=== PATIENT | male | born 1955 | race Caucasian/White ===

== ENCOUNTER → 2016-05-16 | Outpatient (CLI) | payer BC, OTHER ==
[2016-05-16 09:31] LABS: ALT/SGPT 7 U/L (12-78); AST/SGOT 19 U/L (15-37); BLOOD UREA NITROGEN 15 mg/dl (7-18); BUN/CREATININE RATIO 12.4 (10-20); CALCIUM 9.2 mg/dl (8.5-10.1); CARBON DIOXIDE 27 mmol/L (21-32); CHLORIDE 107 mmol/L (98-107); GLUCOSE 111 mg/dl (70-99); MAGNESIUM 2.3 mg/dl (1.8-2.4); POTASSIUM 4.2 mmol/L (3.5-5.1); SODIUM 141 mmol/L (136-145)
[2016-05-16 09:32] LABS: ALKALINE PHOSPHATASE 134 U/L (45-117)
[2016-05-16 09:42] LABS: ESTIMATED AVERAGE GLUCOSE 131 mg/dl; HA1C FLAG Normal (Normal)
== END | disposition home or self-care (01) ==
LOC: C.LAB 08:40
PROVIDERS: ATTEND Family Medicine
DX: R73.02 Impaired glucose tolerance (oral) (principal); E55.9 Vitamin D deficiency, unspecified; K21.9 Gastro-esophageal reflux disease without esophagitis; I10 Essential (primary) hypertension; Z13.89 Encounter for screening for other disorder

== ENCOUNTER → 2016-09-29 | Outpatient (CLI) | payer BC, OTHER ==
[2016-09-29 10:00] LABS: HEMATOCRIT 45.1 % (42-52); MEAN CELL VOLUME 84.6 fL (80-100); MEAN CORPUSCULAR HEMOGLOBIN 27.2 pg (25-34); MEAN CORPUSCULAR HGB CONC 32.2 g/dl (32-36); MEAN PLATELET VOLUME 9.7 fL (7.4-10.4); PLATELET COUNT 206 K/uL (130-400); RED BLOOD COUNT 5.33 M/uL (4.7-6.1); WHITE BLOOD COUNT 4.19 K/uL (4.8-10.8)
[2016-09-29 10:03] LABS: URINE APPEARANCE CLEAR (CLEAR); URINE BILIRUBIN NEG (NEG); URINE COLOR DK YELLOW; URINE NITRITE NEG (NEG); URINE PH 5.5 (4.5-7.5); UROBILINOGEN NEG (NEG)
[2016-09-29 10:11] LABS: MANUAL MICROSCOPIC REQUIRED? NO; REVIEW REQ? NO
[2016-09-29 10:30] LABS: ALT/SGPT 10 U/L (12-78); BLOOD UREA NITROGEN 13 mg/dl (7-18); BUN/CREATININE RATIO 11.6 (10-20); CALCIUM 9.4 mg/dl (8.5-10.1); CARBON DIOXIDE 29 mmol/L (21-32); CHLORIDE 107 mmol/L (98-107); CHOLESTEROL 149 mg/dl (0-200); GLUCOSE 105 mg/dl (70-99); POTASSIUM 4.6 mmol/L (3.5-5.1); SODIUM 139 mmol/L (136-145)
[2016-09-29 10:34] LABS: ALKALINE PHOSPHATASE 102 U/L (45-117); AST/SGOT 23 U/L (15-37); CHOLESTEROL/HDL RATIO 2.8; HDL CHOLESTEROL 54 mg/dl; TRIGLYCERIDES 64 mg/dl (0-150); VERY LOW DENSITY LIPOPROT CALC 13 mg/dl
[2016-09-29 11:16] LABS: ESTIMATED AVERAGE GLUCOSE 128 mg/dl; HA1C FLAG Normal (Normal)
== END | disposition home or self-care (01) ==
LOC: C.LAB 09:26
PROVIDERS: ATTEND Family Medicine
DX: E78.5 Hyperlipidemia, unspecified (principal); I10 Essential (primary) hypertension; E55.9 Vitamin D deficiency, unspecified; R73.02 Impaired glucose tolerance (oral)

== ENCOUNTER 2019-02-16 19:46 | Inpatient (IN) ==
[2019-02-16] MEDS ORDERED: MoRPHine SULFATE 10 MG/ML CARP/VIAL IV STA (20:13)
[2019-02-16] MEDS ORDERED: ONDANSETRON INJ 2 MG/ML 2 ML VIAL IV STA (20:13)
[2019-02-16 20:37] LABS: Basophils # (auto) 0.02 K/uL (0-0.2); Basophils % (auto) 0.2 %; Eosinophils # (auto) 0.04 K/uL (0-0.5); Eosinophils % (auto) 0.4 %; Immature Granulocytes # (auto) 0.02 K/uL (0.00-0.02); Immature Granulocytes % (auto) 0.2 %; Lymphocytes # (auto) 0.88 K/uL (1.2-3.4); Lymphocytes % (auto) 8.8 %; Mean Corpuscular Hemoglobin 28.7 pg (25-34); Mean Corpuscular Volume 84.4 fL (80-100); Mean Platelet Volume 9.7 fL (7.4-10.4); Monocytes # (auto) 0.84 K/uL (0.11-0.59); Monocytes % (auto) 8.4 %; Platelet Count 191 K/uL (130-400); RDW Coefficient of Variation 13.7 % (11.5-14.5); RDW Standard Deviation 42.3 fL (36.4-46.3); Red Blood Count 5.57 M/uL (4.7-6.1)
[2019-02-16 20:47] LABS: INR 1.1 (0.9-1.1); Prothrombin Time 10.9 Seconds (9.0-12.0)
[2019-02-16 20:48] LABS: iSTAT Creatinine 1.3 mg/dl (0.6-1.3); iSTAT Ionized Calcium 1.14 mmol/l (1.12-1.32)
[2019-02-16] MEDS ORDERED: IOVERSOL 100ml IV PRN (20:50)
[2019-02-16 20:54] LABS: Albumin Level 3.9 gm/dl (3.4-5.0); BUN Creatinine Ratio 14.8 (10-20); Calcium 9.9 mg/dl (8.5-10.1); Creatinine Clr Calc Pharmacy 65.1 ml/min; Est GFR (African American) 55.8; Est GFR (Non-African American) 48.1
[2019-02-16 20:57] LABS: Albumin Globulin Ratio 0.9 (0.9-2); Bilirubin,Total 0.8 mg/dl (0.2-1); Globulin 4.3 gm/dl (2.5-4.0); Total Protein 8.2 gm/dl (6.4-8.2)
--- NOTE | 2019-02-16 21:12 | CT Scan Report ---
CT chest w con CT DOSE: 2099.64 mGy.cm HISTORY: r rib pain TECHNIQUE: Multiaxial CT images of the chest were performed following the intravenous administration of contrast. A dose lowering technique was utilized adhering to the principles of ALARA. COMPARISON: None. FINDINGS: Fractures right third through eighth ribs. No evidence of pneumothorax. Bibasilar atelectas is. The remaining ribs are intact. Several small hepatic cysts. Small gallstone. Bibasilar atelectasi s. Nondisplaced cortical fracture superior sternum IMPRESSION: 1. Fractures right third through eighth ribs. 2. No evidence of pneumothorax. 3. Bibasilar atelectasis. 4. Nondisplaced fracture superior sternum ACT 112: Negative or not required by law. The above report was generated using voice recognition software. It may contain grammatical, syntax or spelling errors. Electronically signed by: Dangelo Villar M.D. 02/16/2019 9:10 PM
--- NOTE | 2019-02-16 21:15 | CT Scan Report ---
CT abd pelvis IV con only CT DOSE: HISTORY: Trauma. Pain. FINDINGS: Mild basilar atelectasis. Trace pleural fluid right base. Small lower right paravertebral l ymph node. Several hepatic cysts. Several gallstones. Kidneys are negative for hydronephrosis. Several small renal cortical cysts are present. The abdomen and pelvis in bowel pattern is nonobstructive. Bladder is midline. No free fluid within t he pelvic cul-de-sac. Postoperative changes to the mid to lower lumbar spine as well as lumbosacral j unction TECHNIQUE: Multiaxial CT images of the abdomen and pelvis were performed following the use of intrave nous contrast. A dose lowering technique was utilized adhering to the principles of ALARA. COMPARISON STUDY: None. IMPRESSION: No acute posttraumatic abnormality of the abdomen or pelvis. ACT 112: Negative or not required by law. The above report was generated using voice recognition software. It may contain grammatical, syntax or spelling errors. Electronically signed by: Dangelo Villar M.D. 02/16/2019 9:14 PM
--- NOTE | 2019-02-16 22:26 | History & Physical Report ---
Date of Service February 16, 2019 Assessment & Plan (1) Ribs, multiple fractures: (2) Fracture of sternum: -Admit to [facility] -Patient presenting from home after experiencing a mechanical fall off of his porch -CT chest showing fractures right third through eighth ribs and nondisplaced fracture superior sternum; no signs of pneumothorax -Pain control with scheduled Tylenol every 6 hours; oxycodone for moderate pain and IV morphine for severe pain -Incentive spirometer -PT/OT evals (3) Abnormal kidney function: -Creatinine 1.5; most recent available labs from 2017 show creatinine 1.1 -IVF, follow-up renal functions in a.m. (4) CAD (coronary artery disease): -Appears stable, no reports of chest pain -EKG shows sinus tachycardia (likely secondary to pain), no acute ST changes -Continue aspirin, statin, EVERTON inhibitor (5) Parkinson disease: -Continue carbidopa levodopa, amantadine (6) GERD (gastroesophageal reflux disease): -Continue H2 pillo and PPI (7) DVT prophylaxis: -SCDs, ambulate History of Present Illness Chief Complaint: Rib pain Primary Care Provider: Mayra Ybarra 63-year-old male who presents the ED for evaluation of rib pain after suffering a fall at home today. Patient reports he was on his porch filling up a dog food container when he started shuffling from his Parkinson's and fell off the porch and down 4 stairs. Patient landed on his right side and subsequently had severe right-sided rib pain. Patient denies striking his head or having loss of consciousness. Denies any preceding chest pain, shortness of breath, lightheadedness, dizziness. Reports he otherwise been feeling well recently. No other recent illnesses, fevers, chills. Denies abdominal pain, nausea, vomiting, diarrhea. No urinary symptoms. In the ED, chest CT shows fractures right third through eighth ribs and nondisplaced fracture superior sternum. Patient is hemodynamically stable. He was given IV morphine and IV Zofran. He continues to have persistent pain and will be admitted for observation and management of pain. Allergies Allergy/AdvReac Type Severity Reaction Status Date / Time No Known Allergies Allergy Verified 02/16/19 20:51 Home Medications Home Medications Medication Instructions Recorded Confirmed Type atorvastatin 40 mg tablet 40 mg PO QAM 01/31/19 02/16/19 History carbidopa 25 mg-levodopa 100 mg See Rx Instructions .ROUTE .COMPLEX 01/31/19 02/16/19 History tablet duloxetine 30 mg capsule,delayed 30 mg PO DAILY 01/31/19 02/16/19 History release famotidine 20 mg tablet 20 mg PO DAILY 01/31/19 02/16/19 History lisinopril 5 mg tablet 5 mg PO DAILY 01/31/19 02/16/19 History pantoprazole 40 mg tablet,delayed 40 mg PO DAILY 01/31/19 02/16/19 History release carbidopa 25 mg-levodopa 100 1 tab PO QID #360 tab 02/03/19 02/16/19 Rx mg-entacapone 200 mg tablet amantadine HCl 100 mg capsule 100 mg PO TID 14 Days #42 cap 02/13/19 02/16/19 Rx aspirin 81 mg PO DAILY 02/16/19 02/16/19 History Past Med/Surg History Medical History CAD (coronary artery disease) S/P stent ~ 2009 GERD (gastroesophageal reflux disease) Hyperlipidemia Hypertension Neuropathy ANTWAN (obstructive sleep apnea) Parkinson disease Surgical History H/O brain surgery For clinical trial for Parkinson's History of back surgery S/P rotator cuff repair Family History Mother Kidney disease Father Alzheimer disease Social History Preferred Language: Chinese Communication Ability: Effective 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 Beliefs That Will Affect Care: None Current Living Situation: Spouse Feels Safe at Home: Yes Safety Concerns: Feels Safe At This Time Smoking Status: Never smoker Hx Alcohol Use: No Hx Substance Use: No Review of Systems Review of Systems: ROS per HPI, all other systems reviewed and negative Physical Exam Constitutional: WD/WN, vitals as above Eyes: PERRL, conjunctivae normal, anicteric sclerae ENMT: external ear and nose normal, oropharynx normal Respiratory: normal respiratory effort; no respiratory distress Auscultation: + diminished lung sounds (Bilateral bases) Cardiovascular: Rate/Rhythm: regular rate and regular rhythm Vessels: normal peripheral pulses Extremities: no edema Gastrointestinal (Abdomen): normal bowel sounds, soft, nontender, no hepatosplenomegaly Musculoskeletal: no cyanosis or clubbing, extremities motor strength 5/5 Head/Neck/Chest: + localized rib tenderness (right) Mild -moderate dyskinesias noted Skin: no rashes, warm and dry Neurologic: PERRL, EOMI, accommodation nl, no face palsy, no dysarthria Psychiatric: A+Ox3, euthymic affect Results & Data Vital Signs (Past 12 Hours) Vital Signs Temp Pulse Pulse Resp BP BP Pulse Ox 02/16/19 22:00 101 H 24 104/79 94 02/16/19 21:30 98 H 21 125/80 94 02/16/19 20:36 116 H 24 151/93 H 95 02/16/19 20:35 113 H 20 151/93 H 95 02/16/19 19:54 36.3 C L 130 H 22 170/111 H 98 Laboratory Results Short CBC 02/16/19 Range/Units 20:30 WBC 10.00 (4.8-10.8) K/uL Hgb 16.0 (14.0-18.0) g/dL Hct 47.0 (42-52) % Plt Count 191 (130-400) K/uL BMP 02/16/19 20:30 Sodium 139 Potassium 4.0 Chloride 107 Carbon Dioxide 24 BUN 22 H Creatinine 1.51 H Glucose 113 H Calcium 9.9 Liver Function 02/16/19 Range/Units 20:30 Total Bilirubin 0.8 (0.2-1) mg/dl AST 27 (15-37) U/L ALT 11 L (12-78) U/L Alkaline Phosphatase 94 (45-117) U/L Albumin 3.9 (3.4-5.0) gm/dl Diagnostic Findings CHEST CT IMPRESSION: 1. Fractures right third through eighth ribs. 2. No evidence of pneumothorax. 3. Bibasilar atelectasis. 4. Nondisplaced fracture superior sternum CT ABD/PELVIS IMPRESSION: No acute posttraumatic abnormality of the abdomen or pelvis. Code Status & VTE Plan VTE Prophylaxis Plan VTE Prophylaxis will be ordered: Yes Supervising Physician Co-Signing Physician Notes Pt was seen and examined. Agreed with Luh EVANS exam, assessment and plan. 63 y/o M with PMH of Parkinson's disease, HTN, CAD and GERD present to to the ER after a fall. CT chest showed Fractures right third through eighth ribs and nondisplaced fracture superior sternum. Continue pain control. Incentive michael metry. Fall precaution. PT/OT eval. Will consult case management for possible placement. Continue monitor closely. MD Adarsh
--- NOTE | 2019-02-17 00:03 | Emergency Department Note ---
Entered by Galnia Lopez acting as a scribe for History of Present Illness General Chief complaint: Rib Injury/Pain Stated complaint: 4 BROKEN RIBS Time Seen by Provider: 02/16/19 20:06 Source: patient Limitations: no limitations History of Present Illness Onset (ago): hour(s) (a few) Location: right (rib) Severity: severe Pain Consistency: + constant Maximum Pain Intensity: 10 Quality: + other (pain) Exacerbated By: + movement Associated symptoms: + denies other symptoms (head pain, neck pain, and abdominal pain ) and + other (back pain) The patient is a 63 year old male who presents to the Emergency Room with complaints of severe, constant right-sided rib pain that began after a fall a few hours ago. The patient reports that he was shuffling on the porch to feed the dog, and he fell sideways of the porch. He states that he was seen at [facility] for the pain, and he was referred here. The patient reports that imagining at [facility] showed 4 broken ribs. He notes that movement exacerbates the pain. He complains of back pain. The patient denies hitting his head. He denies any neck pain, head pain, and abdominal pain. Patient denies hitting his head. Denies any blood thinners. Home Medications Home Medications Medication Instructions Recorded Confirmed Type atorvastatin 40 mg tablet 40 mg PO QAM 01/31/19 02/16/19 History carbidopa 25 mg-levodopa 100 mg See Rx Instructions .ROUTE .COMPLEX 01/31/19 02/16/19 History tablet duloxetine 30 mg capsule,delayed 30 mg PO DAILY 01/31/19 02/16/19 History release famotidine 20 mg tablet 20 mg PO DAILY 01/31/19 02/16/19 History lisinopril 5 mg tablet 5 mg PO DAILY 01/31/19 02/16/19 History pantoprazole 40 mg tablet,delayed 40 mg PO DAILY 01/31/19 02/16/19 History release carbidopa 25 mg-levodopa 100 1 tab PO QID #360 tab 02/03/19 02/16/19 Rx mg-entacapone 200 mg tablet amantadine HCl 100 mg capsule 100 mg PO TID 14 Days #42 cap 02/13/19 02/16/19 Rx aspirin 81 mg PO DAILY 02/16/19 02/16/19 History Allergies Allergy/AdvReac Type Severity Reaction Status Date / Time No Known Allergies Allergy Verified 02/16/19 20:51 Past Med/Surg History Medical History CAD (coronary artery disease) S/P stent ~ 2009 GERD (gastroesophageal reflux disease) Hyperlipidemia Hypertension Neuropathy ANTWAN (obstructive sleep apnea) Parkinson disease Surgical History H/O brain surgery For clinical trial for Parkinson's History of back surgery S/P rotator cuff repair Family History Mother Kidney disease Father Alzheimer disease Social History Preferred Language: Citizen Of [place] Communication Ability: Effective 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 and A total of 10 systems reviewed and were otherwise negative Physical Exam Vital Signs Vital Signs - 24 hr 02/16/19 19:54 02/16/19 20:33 02/16/19 20:35 Temperature 36.3 C L Temperature Source Oral Pulse Rate 130 H 113 H Pulse Rate [Apical] Respiratory Rate 22 20 Respiratory Effort / Characteristics Non-Labored Spontaneous Respiratory Depth Normal Blood Pressure 170/111 H 151/93 H Blood Pressure [Left Arm] Blood Pressure Mean 130 107 Blood Pressure Mean [Left Arm] Pulse Oximetry 98 95 Oxygen Delivery Method Room Air Room Air Room Air Sepsis Recent Fever Within 48 Hours No Sepsis New/Unexplained Change in Mental Status No Sepsis Action Taken by Nursing No Action Required 02/16/19 20:36 02/16/19 21:30 02/16/19 22:00 Temperature Temperature Source Pulse Rate 98 H 101 H Pulse Rate [Apical] 116 H Respiratory Rate 24 21 24 Respiratory Effort / Characteristics Respiratory Depth Blood Pressure 125/80 104/79 Blood Pressure [Left Arm] 151/93 H Blood Pressure Mean 92 82 Blood Pressure Mean [Left Arm] 112 Pulse Oximetry 95 94 94 Oxygen Delivery Method Room Air Room Air Room Air Sepsis Recent Fever Within 48 Hours Sepsis New/Unexplained Change in Mental Status Sepsis Action Taken by Nursing GENERAL: sitting up in bed, moderate distress, holding right chest wall HEAD: normal cephalic, atraumatic EYE EXAM: normal conjunctiva OROPHARYNX: no exudate, no erythema, lips, buccal mucosa, and tongue normal and mucous membranes are moist EARS: TMs clear b/l NECK: supple, no nuchal rigidity, no adenopathy, non-tender CHEST: stable to compression anteriorly and posteriorly LUNGS: clear to auscultation. Normal chest wall mechanics. Taking short, shallow breaths. HEART: no murmurs, S1 normal and S2 normal, tachycardic CHEST: tenderness along the right posterior/axillary rib 4-8. ABDOMEN: abdomen soft, non-tender, normo-active bowel sounds, no masses, no rebound or guarding. PELVIS: stable to compression anteriorly and posteriorly BACK: Back is symmetrical on inspection and there is no deformity, no midline tenderness, no CVA tenderness. UPPER EXTREMITIES: full active and passive range of motion of all joints without tenderness to palpation LOWER EXTREMITIES: full active and passive range of motion of all joints without tenderness to palpation NEURO EXAM: Normal sensorium, cranial nerves II-XII grossly intact, normal speech, no gross weakness of arms, no gross weakness of legs. GCS: 15. Course Course ED COURSE: Vital signs were reviewed and showed hypertension The patients medical record was reviewed The above diagnostic studies were performed and reviewed. ED treatments and interventions as stated above. 2008: The patient was evaluated in room B10. A complete history and physical examination was performed. 2140: I spoke with Dr. Ho, [facility] hospitalist, about the patients case. He will further evaluate the patient. 2142: Upon reevaluation, the patient is stable. I discussed my findings with the patient and he understands and agrees with the treatment plan. The patient stated that he did not want any more pain medications. Based on the patients age, coexisting illnesses, exam and lab findings the decision to treat as an inpatient was made. The patient remained stable while under my care. The patient will be evaluated for further management. Administered Medications Discontinued Medications Ioversol (Optiray 320 100ml) 92 ml IV ONCE PRN PRN Reason: Interaction Checking Stop: 02/20/19 20:49 Last Admin: 02/16/19 20:50 Dose: 92 ml Documented by: [id number] Morphine Sulfate (Morphine Sulfate) 6 mg IV NOW STA Stop: 02/16/19 20:14 Last Admin: 02/16/19 20:28 Dose: 6 mg Documented by: [id number] Ondansetron HCl (Zofran) 4 mg IV NOW STA Stop: 02/16/19 20:14 Last Admin: 02/16/19 20:28 Dose: 4 mg Documented by: [id number] Medical Decision Making Differential Diagnosis Differential diagnoses include major intracranial, cervical, spinal, thoracic, abdominal, pelvic and neurologic injury. Fracture, contusion, sprain, strain, l aceration, abrasions included as well. Medical Records Attestation: I reviewed the patient's medical records. Home Medications Current Medication List: was personally reviewed by me Laboratory Data Attestation: I reviewed the patient's lab results. Result diagrams: 02/16/19 20:30 02/16/19 20:30 Lab Results 02/16/19 02/16/19 02/16/19 Range/Units 20:30 20:30 20:30 WBC 10.00 (4.8-10.8) K/uL RBC 5.57 (4.7-6.1) M/uL Hgb 16.0 (14.0-18.0) g/dL POC Hgb (14.0-18.0) g/dl Hct 47.0 (42-52) % POC Hct (42-52) % MCV 84.4 (80-100) fL MCH 28.7 (25-34) pg MCHC 34.0 (32-36) g/dL RDW Std Deviation 42.3 (36.4-46.3) fL RDW Coeff of Angeli 13.7 (11.5-14.5) % Plt Count 191 (130-400) K/uL MPV 9.7 (7.4-10.4) fL Immature Gran % (Auto) 0.2 % Neut % (Auto) 82.0 % Lymph % (Auto) 8.8 % Falls % (Auto) 8.4 % Eos % (Auto) 0.4 % Baso % (Auto) 0.2 % Immature Gran # (Auto) 0.02 (0.00-0.02) K/uL Neut # (Auto) 8.20 H (1.4-6.5) K/uL Lymph # (Auto) 0.88 L (1.2-3.4) K/uL Falls # (Auto) 0.84 H (0.11-0.59) K/uL Eos # (Auto) 0.04 (0-0.5) K/uL Baso # (Auto) 0.02 (0-0.2) K/uL PT 10.9 (9.0-12.0) Seconds INR 1.1 (0.9-1.1) POC Sodium (135-144) mEq/L Sodium 139 (136-145) mmol/L POC Potassium (3.3-5.0) mEq/L Potassium 4.0 (3.5-5.1) mmol/L POC Chloride (101-112) mEq/L Chloride 107 (98-107) mmol/L Carbon Dioxide 24 (21-32) mmol/L POC Total CO2 (24-31) mEq/l Anion Gap 7.0 (3-11) POC Anion Gap (16-25) mmol/L POC BUN (7-18) mg/dl BUN 22 H (7-18) mg/dl Creatinine 1.51 H (0.6-1.4) mg/dl POC Creatinine (0.6-1.3) mg/dl Est Cr Clr Drug Dosing 65.1 ml/min Est GFR ( Amer) 55.8 Est GFR (Non-Af Amer) 48.1 BUN/Creatinine Ratio 14.8 (10-20) Glucose 113 H (70-99) mg/dl POC Glucose (other) (70-99) mg/dl Calcium 9.9 (8.5-10.1) mg/dl POC Ioniz Calcium Gricelda (1.12-1.32) mmol/l Total Bilirubin 0.8 (0.2-1) mg/dl AST 27 (15-37) U/L ALT 11 L (12-78) U/L Alkaline Phosphatase 94 (45-117) U/L Total Protein 8.2 (6.4-8.2) gm/dl Albumin 3.9 (3.4-5.0) gm/dl Globulin 4.3 H (2.5-4.0) gm/dl Albumin/Globulin Ratio 0.9 (0.9-2) /20 Range/Units 20:33 WBC (4.8-10.8) K/uL RBC (4.7-6.1) M/uL Hgb (14.0-18.0) g/dL POC Hgb 17.0 (14.0-18.0) g/dl Hct (42-52) % POC Hct 50 (42-52) % MCV (80-100) fL MCH (25-34) pg MCHC (32-36) g/dL RDW Std Deviation (36.4-46.3) fL RDW Coeff of Angeli (11.5-14.5) % Plt Count (130-400) K/uL MPV (7.4-10.4) fL Immature Gran % (Auto) % Neut % (Auto) % Lymph % (Auto) % Falls % (Auto) % Eos % (Auto) % Baso % (Auto) % Immature Gran # (Auto) (0.00-0.02) K/uL Neut # (Auto) (1.4-6.5) K/uL Lymph # (Auto) (1.2-3.4) K/uL Falls # (Auto) (0.11-0.59) K/uL Eos # (Auto) (0-0.5) K/uL Baso # (Auto) (0-0.2) K/uL PT (9.0-12.0) Seconds INR (0.9-1.1) POC Sodium 140 (135-144) mEq/L Sodium (136-145) mmol/L POC Potassium 4.0 (3.3-5.0) mEq/L Potassium (3.5-5.1) mmol/L POC Chloride 106 (101-112) mEq/L Chloride (98-107) mmol/L Carbon Dioxide (21-32) mmol/L POC Total CO2 24 (24-31) mEq/l Anion Gap (3-11) POC Anion Gap 16.0 (16-25) mmol/L POC BUN 24 H (7-18) mg/dl BUN (7-18) mg/dl Creatinine (0.6-1.4) mg/dl POC Creatinine 1.3 (0.6-1.3) mg/dl Est Cr Clr Drug Dosing ml/min Est GFR ( Amer) Est GFR (Non-Af Amer) BUN/Creatinine Ratio (10-20) Glucose (70-99) mg/dl POC Glucose (other) 111 H (70-99) mg/dl Calcium (8.5-10.1) mg/dl POC Ioniz Calcium Gricelda 1.14 (1.12-1.32) mmol/l Total Bilirubin (0.2-1) mg/dl AST (15-37) U/L ALT (12-78) U/L Alkaline Phosphatase (45-117) U/L Total Protein (6.4-8.2) gm/dl Albumin (3.4-5.0) gm/dl Globulin (2.5-4.0) gm/dl Albumin/Globulin Ratio (0.9-2) Imaging Data Radiologist's Impression: Radiology results as stated below per my review and the radiologist's interpretation: CT abd pelvis IV con only CT DOSE: HISTORY: Trauma. Pain. FINDINGS: Mild basilar atelectasis. Trace pleural fluid right base. Small lower right paravertebral lymph node. Several hepatic cysts. Several gallstones. Kidneys are negative for hydronephrosis. Several small renal cortical cysts are present. The abdomen and pelvis in bowel pattern is nonobstructive. Bladder is midline. No free fluid within the pelvic cul-de-sac. Postoperative changes to the mid to lower lumbar spine as well as lumbosacral junction TECHNIQUE: Multiaxial CT images of the abdomen and pelvis were performed following the use of intravenous contrast. A dose lowering technique was utilized adhering to the principles of ALARA. COMPARISON STUDY: None. IMPRESSION: No acute posttraumatic abnormality of the abdomen or pelvis. ACT 112: Negative or not required by law. The above report was generated using voice recognition software. It may contain grammatical, syntax or spelling errors. Electronically signed by: Dangelo Villar M.D. 02/16/2019 9:[address] chest w con CT DOSE: 2099.64 mGy.cm HISTORY: r rib pain TECHNIQUE: Multiaxial CT images of the chest were performed following the intravenous administration of contrast. A dose lowering technique was utilized adhering to the principles of ALARA. COMPARISON: None. FINDINGS: Fractures right third through eighth ribs. No evidence of pneumothorax. Bibasilar atelectasis. The remaining ribs are intact. Several small hepatic cysts. Small gallstone. Bibasilar atelectasis. Nondisplaced cortical fracture superior sternum IMPRESSION: 1. Fractures right third through eighth ribs. 2. No evidence of pneumothorax. 3. Bibasilar atelectasis. 4. Nondisplaced fracture superior sternum ACT 112: Negative or not required by law. The above report was generated using voice recognition software. It may contain grammatical, syntax or spelling errors. Electronically signed by: Dangelo Villar M.D. 02/16/2019 9:10 PM ECG Data Attestation: I personally reviewed and interpreted this ECG as follows: Indication: + chest pain Rate (beats per minute): 106 Rhythm: + sinus tachycardia ECG [place]: + Left axis deviation ECG Findings: + Other (normal QTC); no PVCs Blood Pressure Blood Pressure Findings: Elevated blood pressure Blood Pressure Disposition: further management by hospitalist VIKAS Narrative Patient is a 63-year-old male with Parkinson's that presents the ER following a fall onto his right rib cage down 4 steps. He denies hitting his head or any neck pain. No loss consciousness. IV was established blood work was obtained and showed no significant leukocytosis or anemia. INR was normal. BMP with a slightly elevated BUN. LFTs bilirubin was unremarkable. CT of the chest and abdomen pelvis shows rib fractures 3 through 8. No hemo-or pneumothorax. Patient was given IV fluids IV morphine and IV Zofran. Discussed with the hospitalist for observation and they were willing to admit. Patient and family were updated at bedside. If they declined patient was going to go to [facility] per their request. Impression & Plan Multiple fractures of ribs, Parkinson disease, Hypertension, Chest pain Discharge Plan Visit Data *Final* Discharge Date/Time: 02/16/19 23:00 Chief Complaint: Rib Injury/Pain Stated Complaint: 4 BROKEN RIBS ED Provider: Johnathon Nash Discharge Problem: Multiple fractures of ribs, Parkinson disease, Hypertension, Chest pain Patient Disposition: Admitted As Inpatient Discharge Instructions Interventions: ED Discharge Assessment Last Done: 02/16/19 23:00 Discharge Problem: Multiple fractures of ribs Qualifiers: Encounter type: initial encounter Fracture type: closed Laterality: right Qualified Code(s): S22.41XA - Multiple fractures of ribs, right side, initial encounter for closed fracture Hypertension Qualifiers: Hypertension type: unspecified Qualified Code(s): I10 - Essential (primary) hypertension Chest pain Qualifiers: Chest pain type: unspecified Qualified Code(s): R07.9 - Chest pain, unspecified The scribe's documentation has been prepared under my direction and personally reviewed by me in its entirety. I confirm that the note above accurately reflects all work, treatment, procedures, and medical decision making performed by me.
[2019-02-17] MEDS: ACETAMINOPHEN 325 MG TAB PO SCH ×4 (00:33→17:23)
[2019-02-17] MEDS: SODIUM CHLORIDE 0.9% 1000ML 1,000 ML IV SCH ×2 (00:34→13:16)
[2019-02-17] MEDS: OXYCODONE HCL IR 5 MG TAB (IMMEDIATE RELEASE) PO PRN ×3 (00:34→14:37)
[2019-02-17 06:30] LABS: Hematocrit (blood only) 43.8 % (42-52); Hemoglobin 14.4 g/dL (14.0-18.0); Mean Corpuscular Hgb Conc 32.9 g/dL (32-36); Mean Platelet Volume 9.8 fL (7.4-10.4); Platelet Count 179 K/uL (130-400); RDW Coefficient of Variation 13.9 % (11.5-14.5); RDW Standard Deviation 43.2 fL (36.4-46.3); Red Blood Count 5.15 M/uL (4.7-6.1); White Blood Count 5.98 K/uL (4.8-10.8)
[2019-02-17 07:02] LABS: Calcium 8.7 mg/dl (8.5-10.1); Creatinine Clr Calc Pharmacy 84.8 ml/min; Est GFR (African American) 76.7; Est GFR (Non-African American) 66.2; Potassium 4.1 mmol/L (3.5-5.1)
[2019-02-17 07:23] LABS: Appearance Urine Clear (Clear); Bilirubin Urine Negative (Negative); Blood Urine Negative (Negative); Color Urine Dark Yellow; Glucose Urine UA Negative (Negative); Ketones Urine Trace (Negative); Leukocyte Esterase Urine Negative (Negative); Nitrite Urine Negative (Negative); Protein Urine Negative (Negative); Specific Gravity Urine > 1.045 (1.000-1.030); Urobilinogen Urine Negative (Negative); pH Urine 5.5 (4.5-7.5)
[2019-02-17] MEDS: ASPIRIN 81 MG ECTAB PO SCH (08:36)
[2019-02-17] MEDS: DULOXETINE HCL 30 MG CAP PO SCH (08:37)
[2019-02-17] MEDS: PANTOprazole 40 MG TAB PO SCH (08:37)
[2019-02-17] MEDS: ATORVASTATIN 40 MG TAB PO SCH (08:37)
[2019-02-17] MEDS: FAMOTIDINE 20 MG TAB PO SCH (08:37)
[2019-02-17] MEDS: AMANTADINE HCL 100 MG CAPSULE PO SCH ×3 (08:37→20:35)
[2019-02-17] MEDS: CARBIDOPA/LEVODOPA 25/100MG TAB PO SCH ×4 (08:38→20:34)
[2019-02-17] MEDS: ENTACAPONE 200 MG TAB PO SCH ×4 (08:38→20:34)
[2019-02-17] MEDS: lisinopriL 5 MG TAB PO SCH (08:38)
[2019-02-17] MEDS ORDERED: ENTACAPONE 200 MG TAB PO SCH (09:00)
[2019-02-17] MEDS: MoRPHine SULFATE 4 MG/ML 1 ML CARP\\VIAL IV PRN (11:31)
--- NOTE | 2019-02-17 15:11 | XRay Report ---
XR chest 2V PA/lateral HISTORY: 63 years-old Male blunt chest trauma, re-eval acute chest trauma COMPARISON: Chest CT 02/16/2019 TECHNIQUE: PA and lateral views of the chest FINDINGS: Cardiac silhouette is mildly enlarged. Bibasilar predominantly linear opacities are redemonstrated arcos ggestive of scarring/atelectasis. There is no pneumothorax or overt pulmonary edema. Mild blunting of the costophrenic angles. Multiple acute subacute appearing right-sided rib fractures are redemonstra cecilio. IMPRESSION: 1. Acute and subacute appearing right-sided rib fractures are redemonstrated, better evaluated on CT of the chest 02/16/2019. No pneumothorax identified. 2. Bibasilar atelectasis with suggested trace pleural effusions. 3. Cardiomegaly. ACT 112: Negative or not required by law. The above report was generated using voice recognition software. It may contain grammatical, syntax o r spelling errors. Electronically signed by: Surinder Mathur M.D. 02/17/2019 3:10 PM
--- NOTE | 2019-02-17 19:14 | Hospitalist Progress Note ---
Date of Service February 17, 2019 Assessment & Plan (1) Ribs, multiple fractures: Blunt chest trauma. Was not put on telemetry floor overnight. Will repeat EKG now and order troponin. If elevated, would consider transfer to telemetry and order echocardiogram. Cont pulm toilet, ambulate as tolerated, cont supportive care with pain medication. Adding bowel regimen. Changing APAP to 1000mg PO q8h, lidocaine patch and Naproxen now. (2) Fracture of sternum: same as above. Possible pulmonary contusion with trace effusion. (3) LYUDMILA (acute kidney injury): resolved with IVF overnight. (4) CAD (coronary artery disease): stable. Cont medical management with ASA, statin, ACEI (5) Parkinson disease: -Continue home medications (6) DVT prophylaxis: -SCDs, ambulate Full Code Dispo-plan for home when medically stable for discharge home. Ashly Goldstein DO [facility] Hospitalist Subjective right posterior rib pain tolerable when at rest denies other issues at this time denies SOB or other respiratory issues reviewed IS and importance of ambulation and pulmonary toilet. Review of Systems Review of Systems: All systems reviewed & are unremarkable except as noted in HPI & below Physical Exam Physical Exam: CONSTITUTIONAL: WNWD, vitals as above, generally well- appearing EYES: normal conjunctivae, no scleral icterus ENT: MMM NECK: trachea midline RESPIRATORY: mild crackles at right base, otherwise clear throughout with good airflow, no wheezes or rales. Normal respiratory effort. CARDIOVASCULAR: regular rate and rhythm, S1 and 2 heard without murmurs, gallops or rubs, no JVD, no peripheral edema GASTROINTESTINAL: normal bowel sounds, soft, nontender, nondistended MUSCULOSKELETAL: strength 5/5 throughout, head is normocephalic and atraumatic, neck supple, posterolateral right rib tenderness to palpation. SKIN: warm and dry NEUROLOGIC: CN 2-12 grossly intact, normal cognition, normal speech, mild tremor PSYCHIATRIC: alert cooperative and oriented to person, place and time. Results & Data Vital Signs (Past 12 Hours) Vital Signs Temp Pulse Resp BP Pulse Ox 02/17/19 15:33 36.7 C 80 18 121/72 95 Laboratory Results Short CBC 02/16/19 02/17/19 Range/Units 20:30 06:05 WBC 10.00 5.98 (4.8-10.8) K/uL Hgb 16.0 14.4 (14.0-18.0) g/dL Hct 47.0 43.8 (42-52) % Plt Count 191 179 (130-400) K/uL BMP 02/16/19 02/17/19 20:30 06:05 Sodium 139 138 Potassium 4.0 4.1 Chloride 107 110 H Carbon Dioxide 24 24 BUN 22 H 21 H Creatinine 1.51 H 1.16 D Glucose 113 H 104 H Calcium 9.9 8.7 Liver Function 02/16/19 Range/Units 20:30 Total Bilirubin 0.8 (0.2-1) mg/dl AST 27 (15-37) U/L ALT 11 L (12-78) U/L Alkaline Phosphatase 94 (45-117) U/L Albumin 3.9 (3.4-5.0) gm/dl Urine 02/17/19 Range/Units 05:37 Urine Color Dark Yellow Urine Appearance Clear (Clear) Urine pH 5.5 (4.5-7.5) Ur Specific [place] > 1.045 H (1.000-1.030) Urine Protein Negative (Negative) Urine Glucose (UA) Negative (Negative) Medications Administered Current Inpatient Medications Acetaminophen (Tylenol) 1,[address] [facility] Stop: 03/19/19 21:59 Amantadine HCl (Symmetrel) [address] [facility]; Protocol Stop: 03/19/19 08:59 Last Admin: 02/17/19 13:16 Dose: 100 mg Documented by: Aspirin (Ecotrin Ectab) [address] [facility] Stop: 03/19/19 08:59 Last Admin: 02/17/19 08:36 Dose: 81 mg Documented by: Atorvastatin Calcium (Lipitor) [address] [facility] Stop: 03/19/19 08:59 Last Admin: 02/17/19 08:37 Dose: 40 mg Documented by: Carbidopa/Levodopa (Sinemet 25/100 Mg) [address] [facility] Stop: 03/19/19 08:59 Last Admin: 02/17/19 16:41 Dose: Not Given Documented by: Duloxetine HCl (Cymbalta) [address] [facility] Stop: 03/19/19 08:59 Last Admin: 02/17/19 08:37 Dose: 30 mg Documented by: Entacapone (Comtan) [address] [facility] Stop: 03/19/19 08:59 Last Admin: 02/17/19 16:39 Dose: 200 mg Documented by: Famotidine (Pepcid) [address] [facility] Stop: 03/19/19 08:59 Last Admin: 02/17/19 08:37 Dose: 20 mg Documented by: Lidocaine (Lidoderm 5%) [address] [facility] Stop: 03/19/19 19:14 Lisinopril (Zestril) [address] [facility] Stop: 03/19/19 08:59 Last Admin: 02/17/19 08:38 Dose: 5 mg Documented by: Miscellaneous (Remove Lidoderm Patch) 1 ea N/A Q24H [facility] Stop: 03/19/19 19:14 Morphine Sulfate (Morphine Sulfate) 4 mg IV Q4H PRN PRN Reason: Severe Pain Stop: 03/02/19 23:27 Last Admin: 02/17/19 11:31 Dose: 4 mg Documented by: Naproxen (Naprosyn) [address] [facility] Stop: 03/19/19 19:14 Oxycodone HCl (Roxicodone Immediate Rel) 5 mg PO Q6H PRN PRN Reason: Moderate Pain Stop: 03/02/19 23:27 Last Admin: 02/17/19 14:37 Dose: 5 mg Documented by: Pantoprazole Sodium (Protonix) [address] [facility] Stop: 03/19/19 08:59 Last Admin: 02/17/19 08:37 Dose: 40 mg Documented by:
[2019-02-17] MEDS: NAPROXEN 250 MG TAB PO SCH (20:30)
[2019-02-17] MEDS: LIDOCAINE 5% 1 PATCH TD SCH (20:30)
[2019-02-17] MEDS: DOCUSATE SODIUM 100 MG CAP PO SCH (20:31)
[2019-02-17] MEDS: ACETAMINOPHEN 500 MG TAB PO SCH (22:04)
[2019-02-18] MEDS: ACETAMINOPHEN 500 MG TAB PO SCH ×3 (06:11→21:43)
[2019-02-18] MEDS: NAPROXEN 250 MG TAB PO SCH ×2 (07:25→18:38)
--- NOTE | 2019-02-18 07:27 | Electrocardiogram Report ---
Test Reason : Blood Pressure : / mmHG Vent. Rate : 106 BPM Atrial Rate : 106 BPM P-R Int : 200 ms QRS Dur : 090 ms QT Int : 336 ms P-R-T Axes : 049 -42 034 degrees QTc Int : 446 ms Poor data quality, interpretation may be adversely affected Sinus tachycardia Poor R wave progression, consider anterior CO vs. lead placement vs. LVH Left axis deviation Abnormal ECG No previous ECGs available Confirmed by Bib Escamilla ([id number]) on 02/18/2019 7:27:04 AM Referred By: REFERRED SELF Confirmed By:Harshal Escamilla
[2019-02-18] MEDS: ENTACAPONE 200 MG TAB PO SCH ×4 (08:45→21:42)
[2019-02-18] MEDS: FAMOTIDINE 20 MG TAB PO SCH ×3 (08:45→08:49)
[2019-02-18] MEDS: PANTOprazole 40 MG TAB PO SCH (08:45)
[2019-02-18] MEDS: ASPIRIN 81 MG ECTAB PO SCH (08:45)
[2019-02-18] MEDS: lisinopriL 5 MG TAB PO SCH (08:45)
[2019-02-18] MEDS: DOCUSATE SODIUM 100 MG CAP PO SCH ×2 (08:46→21:43)
[2019-02-18] MEDS: CARBIDOPA/LEVODOPA 25/100MG TAB PO SCH ×4 (08:46→21:42)
[2019-02-18] MEDS: ATORVASTATIN 40 MG TAB PO SCH (08:46)
[2019-02-18] MEDS: DULOXETINE HCL 30 MG CAP PO SCH (08:46)
[2019-02-18] MEDS: AMANTADINE HCL 100 MG CAPSULE PO SCH ×3 (08:47→21:42)
[2019-02-18] MEDS: OXYCODONE HCL IR 5 MG TAB (IMMEDIATE RELEASE) PO PRN ×2 (10:37→17:50)
--- NOTE | 2019-02-18 11:17 | Surgery Consultation ---
Date of Consultation February 18, 2019 Assessment & Plan (1) Multiple fractures of ribs: Present on Admission?: Yes (2) Fracture of sternum: His pain is improving. His kidney function is normalizing. At this point I think he can be discharged from my standpoint. I will check a chest x-ray in the morning however I think he is motivated to use his incentive spirometer. I have also encouraged him to walk with his walker despite his Parkinson's and his "shuffling". The patient and his understand. Present on Admission?: Yes History of Present Illness Attending Physician: Ashly Goldstein, DO History of Present Illness I have been asked to see this very nice 63-year-old male who suffers from Parkinson's disease which was diagnosed 9 years ago. He presented with acute renal failure after falling and suffering multiple rib fractures and fracture of his sternum. His states that his shuffling has gotten worse in the last few months and he fell off the back steps. He really has no pulmonary issues. He is not requiring oxygen. Not short of breath. He has no hemoptysis. I discussed this case with Dr. Ashly Goldstein was asked me to comment on his fractures from a thoracic surgery standpoint.. Allergies Allergy/AdvReac Type Severity Reaction Status Date / Time No Known Allergies Allergy Verified 02/16/19 20:51 Home Medications Home Medications Medication Instructions Recorded Confirmed Type atorvastatin 40 mg tablet 40 mg PO QAM 01/31/19 02/16/19 History carbidopa 25 mg-levodopa 100 mg See Rx Instructions .ROUTE .COMPLEX 01/31/19 02/16/19 History tablet duloxetine 30 mg capsule,delayed 30 mg PO DAILY 01/31/19 02/16/19 History release famotidine 20 mg tablet 20 mg PO DAILY 01/31/19 02/16/19 History lisinopril 5 mg tablet 5 mg PO DAILY 01/31/19 02/16/19 History pantoprazole 40 mg tablet,delayed 40 mg PO DAILY 01/31/19 02/16/19 History release carbidopa 25 mg-levodopa 100 1 tab PO QID #360 tab 02/03/19 02/16/19 Rx mg-entacapone 200 mg tablet amantadine HCl 100 mg capsule 100 mg PO TID 14 Days #42 cap 02/13/19 02/16/19 Rx aspirin 81 mg PO DAILY 02/16/19 02/16/19 History Patient History Medical History CAD (coronary artery disease) S/P stent ~ 2009 GERD (gastroesophageal reflux disease) Hyperlipidemia Hypertension Neuropathy ANTWAN (obstructive sleep apnea) Parkinson disease Surgical History H/O brain surgery For clinical trial for Parkinson's History of back surgery S/P rotator cuff repair Family History Mother Kidney disease Father Alzheimer disease Social History Preferred Language: Slovenian Communication Ability: Effective Stoper Required: No Beliefs That Will Affect Care: None marital status: Current Living Situation: Spouse Feels Safe at Home: Yes Safety Concerns: Feels Safe At This Time Smoking Status: Never smoker Hx Alcohol Use: No Hx Substance Use: No Review of Systems Review of Systems: All systems reviewed & are unremarkable except as noted in HPI & below Patient's weight is been stable. He is obese at 6 foot tall and weighs over 240 pounds. He has never smoked cigarettes. He has never used alcohol. He is been eating well. His is worried about his "shuffling". They are followed very closely at [facility] and in fact the patient underwent a craniotomy with gene therapy a few years ago. He is done well from that perspective however his disease has progressed. He denies any other GI or issues. He is had no skin breakdown. He has had no visual auditory changes. He does wear glasses. Physical Exam Physical Exam: This is a heavyset male who is awake alert and oriented. He is moving well in his bed. He sits up easily. He wears glasses. His extraocular meds are intact. He is a well-healed craniotomy incision superiorly. His was regular round react. Tongue is midline. His neck is thick but supple he has no supraclavicular cervical lymphadenopathy or neck vein distention. He has no carotid bruits. He is moving air very well. He has mildly decreased breath sounds in the right side. He has a regular ate and rhythm of his heart. His abdomen is obese but soft with no surgical incisions. He has good peripheral pulses. He has trace edema bilaterally. He has no joint effusions. Neurologically he does have cogwheel rigidity. He is awake alert and oriented. Results & Data Vital Signs (Past 12 Hours) Vital Signs Temp Pulse Resp BP Pulse Ox 02/18/19 07:39 36.8 C 77 16 132/83 94 PG Care Time/CCT Total # of Minutes Spent Total Time Spent with Patient: Total time spent is greater than 50% in coordination of care (as documented) at patient's floor/unit and/or counseling patient: (1) Multiple fractures of ribs Encounter type: initial encounter Fracture type: closed Laterality: right Qualified Code(s): S22.41XA - Multiple fractures of ribs, right side, initial encounter for closed fracture
--- NOTE | 2019-02-18 12:54 | Electrocardiogram Report ---
Test Reason : Blood Pressure : / mmHG Vent. Rate : 067 BPM Atrial Rate : 067 BPM P-R Int : 196 ms QRS Dur : 096 ms QT Int : 404 ms P-R-T Axes : 017 -33 064 degrees QTc Int : 426 ms Normal sinus rhythm Left axis deviation Abnormal ECG When compared with ECG of 16-FEB-2019 20:19, Vent. rate has decreased BY 39 BPM Confirmed by Jcarlos Colorado ([id number]) on 02/18/2019 12:54:16 PM Referred By: REFERRED SELF Confirmed By:Jcarlos [place]
--- NOTE | 2019-02-18 13:01 | Electrocardiogram Report ---
Test Reason : Blood Pressure : / mmHG Vent. Rate : 080 BPM Atrial Rate : 080 BPM P-R Int : 176 ms QRS Dur : 108 ms QT Int : 388 ms P-R-T Axes : 051 -16 064 degrees QTc Int : 447 ms Normal sinus rhythm Normal ECG When compared with ECG of 17-FEB-2019 22:28, (unconfirmed) No significant change was found Confirmed by Jcarlos Colorado ([id number]) on 02/18/2019 1:00:58 PM Referred By: REFERRED SELF Confirmed By:Jcarlos [place]
--- NOTE | 2019-02-18 16:57 | Hospitalist Progress Note ---
Date of Service February 18, 2019 Assessment & Plan (1) Ribs, multiple fractures: Blunt chest trauma. EKGs and troponin are normal. Thoracic surgery saw him and thought he was stable for discharge home. Cont pulm toilet, ambulate as tolerated, cont supportive care with pain medication. Adding bowel regimen. Changing APAP to 1000mg PO q8h, lidocaine patch and Naproxen now. Repeat CXR in am. (2) Fracture of sternum: same as above. (3) LYUDMILA (acute kidney injury): resolved with IVF overnight. (4) CAD (coronary artery disease): stable. Cont medical management with ASA, statin, ACEI (5) Parkinson disease: -Continue home medications (6) DVT prophylaxis: -SCDs, ambulate Full Code Dispo-plan for home when medically stable for discharge home. Ashly Goldstein DO [facility] Hospitalist Subjective feeling well today some intermittent pain improved with lidocaine and naproxen Review of Systems Review of Systems: All systems reviewed & are unremarkable except as noted in HPI & below Physical Exam Physical Exam: CONSTITUTIONAL: WNWD, vitals as above, generally well- appearing EYES: normal conjunctivae, no scleral icterus ENT: MMM NECK: trachea midline RESPIRATORY: CTAB, no wheezes or rales. Normal respiratory effort. CARDIOVASCULAR: regular rate and rhythm, S1 and 2 heard without murmurs, gallops or rubs, no JVD, no peripheral edema GASTROINTESTINAL: normal bowel sounds, soft, nontender, nondistended MUSCULOSKELETAL: strength 5/5 throughout, head is normocephalic and atraumatic, neck supple, posterolateral right rib tenderness to palpation. SKIN: warm and dry NEUROLOGIC: CN 2-12 grossly intact, normal cognition, normal speech, mild ethan mor PSYCHIATRIC: alert cooperative and oriented to person, place and time. Results & Data Vital Signs (Past 12 Hours) Vital Signs Temp Pulse Resp BP Pulse Ox 02/18/19 15:01 36.9 C 75 18 104/58 L 94 02/18/19 07:39 36.8 C 77 16 132/83 94 Laboratory Results Cardiac Enzymes 02/17/19 Range/Units 19:58 Troponin I < 0.015 (0-0.045) ng/ml Medications Administered Current Inpatient Medications Acetaminophen (Tylenol) 1,000 mg PO Q8H [facility] Stop: 03/19/19 21:59 Last Admin: 02/18/19 13:43 Dose: 1,000 mg Documented by: Amantadine HCl (Symmetrel) 100 mg PO TID [facility]; Protocol Stop: 03/19/19 08:59 Last Admin: 02/18/19 12:44 Dose: 100 mg Documented by: Aspirin (Ecotrin Ectab) 81 mg PO DAILY [facility] Stop: 03/19/19 08:59 Last Admin: 02/18/19 08:45 Dose: 81 mg Documented by: Atorvastatin Calcium (Lipitor) 40 mg PO QAM [facility] Stop: 03/19/19 08:59 Last Admin: 02/18/19 08:46 Dose: 40 mg Documented by: Carbidopa/Levodopa (Sinemet 25/100 Mg) 1 tab PO QID [facility] Stop: 03/19/19 08:59 Last Admin: 02/18/19 12:43 Dose: 1 tab Documented by: Docusate Sodium (Colace) 100 mg PO BID [facility] Stop: 03/19/19 20:59 Last Admin: 02/18/19 08:46 Dose: Not Given Documented by: Duloxetine HCl (Cymbalta) 30 mg PO DAILY [facility] Stop: 03/19/19 08:59 Last Admin: 02/18/19 08:46 Dose: 30 mg Documented by: Entacapone (Comtan) 200 mg PO QID [facility] Stop: 03/19/19 08:59 Last Admin: 02/18/19 12:44 Dose: Not Given Documented by: Famotidine (Pepcid) 20 mg PO DAILY [facility] Stop: 03/19/19 08:59 Last Admin: 02/18/19 08:49 Dose: 20 mg Documented by: Lidocaine (Lidoderm 5%) 1 patch TD Q24H [facility] Stop: 03/19/19 19:59 Last Admin: 02/17/19 20:30 Dose: 1 patch Documented by: Lisinopril (Zestril) 5 mg PO DAILY [facility] Stop: 03/19/19 08:59 Last Admin: 02/18/19 08:45 Dose: 5 mg Documented by: Miscellaneous (Remove Lidoderm Patch) 1 ea N/A Q24H [facility] Stop: 03/20/19 07:59 Last Admin: 02/18/19 07:25 Dose: 1 ea Documented by: Morphine Sulfate (Morphine Sulfate) 4 mg IV Q4H PRN PRN Reason: Severe Pain Stop: 03/02/19 23:27 Last Admin: 02/17/19 11:31 Dose: 4 mg Documented by: Naproxen (Naprosyn) 500 mg PO Q12H [facility] Stop: 03/19/19 19:14 Last Admin: 02/18/19 07:25 Dose: 500 mg Documented by: Oxycodone HCl (Roxicodone Immediate Rel) 5 mg PO Q6H PRN PRN Reason: Moderate Pain Stop: 03/02/19 23:27 Last Admin: 02/18/19 10:37 Dose: 5 mg Documented by: Pantoprazole Sodium (Protonix) 40 mg PO DAILY [facility] Stop: 03/19/19 08:59 Last Admin: 02/18/19 08:45 Dose: 40 mg Documented by:
[2019-02-18] MEDS ORDERED: LIDOCAINE 5% 1 PATCH TD SCH (17:00)
[2019-02-18] MEDS: MoRPHine SULFATE 4 MG/ML 1 ML CARP\\VIAL IV PRN (18:41)
[2019-02-18] MEDS: LIDOCAINE 5% 1 PATCH TD SCH (19:46)
[2019-02-19] MEDS: MoRPHine SULFATE 4 MG/ML 1 ML CARP\\VIAL IV PRN (03:48)
[2019-02-19] MEDS: ACETAMINOPHEN 500 MG TAB PO SCH (06:05)
[2019-02-19] MEDS: NAPROXEN 250 MG TAB PO SCH (06:58)
--- NOTE | 2019-02-19 07:01 | XRay Report ---
XR chest 1V portable CLINICAL HISTORY: pleural effusion COMPARISON STUDY: Chest CT February 16, 2019. Chest radiograph February 17, 2019. FINDINGS: Multiple acute rib fractures are again noted. Several are mildly displaced. There is no pne umothorax. There may be a trace right pleural effusion. Linear bibasilar opacities favor atelectasis. There is no evidence for pulmonary edema or pneumonia. Cardiomediastinal silhouette is stable. IMPRESSION: 1. Redemonstration of multiple right-sided rib fractures. No pneumothorax. Possible trace right pleur al effusion. 2. Mild right basilar opacity. Atelectasis is favored although a mild infectious process could appear similar. 3. Linear left basilar opacity consistent with atelectasis. ACT 112: Negative or not required by law. Electronically signed by: Eddie Yost M.D. 02/19/2019 7:00 AM
[2019-02-19] MEDS: OXYCODONE HCL IR 5 MG TAB (IMMEDIATE RELEASE) PO PRN (08:22)
[2019-02-19] MEDS: PANTOprazole 40 MG TAB PO SCH (08:23)
[2019-02-19] MEDS: DOCUSATE SODIUM 100 MG CAP PO SCH (08:23)
[2019-02-19] MEDS: DULOXETINE HCL 30 MG CAP PO SCH (08:23)
[2019-02-19] MEDS: ATORVASTATIN 40 MG TAB PO SCH (08:23)
[2019-02-19] MEDS: CARBIDOPA/LEVODOPA 25/100MG TAB PO SCH (08:23)
[2019-02-19] MEDS: lisinopriL 5 MG TAB PO SCH (08:23)
[2019-02-19] MEDS: AMANTADINE HCL 100 MG CAPSULE PO SCH (08:23)
[2019-02-19] MEDS: ENTACAPONE 200 MG TAB PO SCH (08:24)
[2019-02-19] MEDS: ASPIRIN 81 MG ECTAB PO SCH (08:24)
--- NOTE | 2019-02-19 09:46 | Surgery Progress Note ---
Date of Service February 19, 2019 Assessment & Plan (1) Multiple fractures of ribs: His x-ray looks quite good. I see no evidence of any fluid accumulating or evidence of a pulmonary contusion. At this point I will sign off. I will not need to follow-up with him. There are any questions please call. Present on Admission?: Yes Subjective I am still having pain but it is getting better. Physical Exam Physical Exam: Good aeration in both lung ayala. Results & Data Vital Signs (Past 12 Hours) Vital Signs Temp Pulse Resp BP Pulse Ox 02/19/19 08:24 130/86 02/19/19 07:05 36.7 C 76 16 142/90 H 95 02/18/19 22:52 36.6 C 70 16 126/82 93 PG Care Time/CCT Total # of Minutes Spent Total Time Spent with Patient: Total time spent is greater than 50% in coordination of care (as documented) at patient's floor/unit and/or counseling patient: (1) Multiple fractures of ribs Encounter type: initial encounter Fracture type: closed Laterality: right Qualified Code(s): S22.41XA - Multiple fractures of ribs, right side, initial encounter for closed fracture
--- NOTE | 2019-02-19 11:32 | Discharge Summary ---
Date of Service February 19, 2019 Admission HPI Per Admitting Provider 63-year-old male who presents the ED for evaluation of rib pain after suffering a fall at home today. Patient reports he was on his porch filling up a dog food container when he started shuffling from his Parkinson's and fell off the porch and down 4 stairs. Patient landed on his right side and subsequently had severe right-sided rib pain. Patient denies striking his head or having loss of consciousness. Denies any preceding chest pain, shortness of breath, lightheadedness, dizziness. Reports he otherwise been feeling well recently. No other recent illnesses, fevers, chills. Denies abdominal pain, nausea, vomiting, diarrhea. No urinary symptoms. In the ED, chest CT shows fractures right third through eighth ribs and nondisplaced fracture superior sternum. Patient is hemodynamically stable. He was given IV morphine and IV Zofran. He continues to have persistent pain and will be admitted for observation and management of pain. Admission Exam Per Admitting Provider Constitutional: WD/WN, vitals as above Eyes: PERRL, conjunctivae normal, anicteric sclerae ENMT: external ear and nose normal, oropharynx normal Respiratory: normal respiratory effort; no respiratory distress Auscultation: + diminished lung sounds (Bilateral bases) Cardiovascular: Rate/Rhythm: regular rate and regular rhythm Vessels: normal peripheral pulses Extremities: no edema Gastrointestinal (Abdomen): normal bowel sounds, soft, nontender, no hepatosplenomegaly Musculoskeletal: no cyanosis or clubbing, extremities motor strength 5/5 Head/Neck/Chest: + localized rib tenderness (right) Mild -moderate dyskinesias noted Skin: no rashes, warm and dry Neurologic: PERRL, EOMI, accommodation nl, no face palsy, no dysarthria Psychiatric: A+Ox3, euthymic affect Principal Diagnosis blunt chest trauma with sternal fracture and multiple nondisplaced rib fractures LYUDMILA-resolved Discharge Exam CONSTITUTIONAL: WNWD, vitals as above, generally well-appearing EYES: normal conjunctivae, no scleral icterus ENT: MMM NECK: trachea midline RESPIRATORY: CTAB, no wheezes or rales. Normal respiratory effort. CARDIOVASCULAR: regular rate and rhythm, S1 and 2 heard without murmurs, gallops or rubs, no JVD, no peripheral edema GASTROINTESTINAL: normal bowel sounds, soft, nontender, nondistended MUSCULOSKELETAL: strength 5/5 throughout, head is normocephalic and atraumatic, neck supple, posterolateral right rib tenderness to palpation. SKIN: warm and dry NEUROLOGIC: CN 2-12 grossly intact, normal cognition, normal speech, mild tremor PSYCHIATRIC: alert cooperative and oriented to person, place and time. Discharge Data Allergies Allergy/AdvReac Type Severity Reaction Status Date / Time No Known Allergies Allergy Verified 02/16/19 20:51 Consultations 02/16/19 21:43 ED Decision to Admit Stat 02/16/19 23:28 Consult Case Management - Discharge Planning Routine 02/18/19 10:08 Consult Thoracic Surgery Routine Ordered Studies 02/16/19 20:13 CT abd pelvis IV con only Stat CT chest w con Stat Hospital Course (1) Ribs, multiple fractures: (2) Fracture of sternum: (3) LYUDMILA (acute kidney injury): (4) Parkinson disease: 63-year-old man was admitted to the hospitalist service for monitoring after blunt chest trauma. He had fallen down 4 steps after a mechanical fall secondary to shuffling and dyskinesias related to his Parkinson's at home. Work-up included a CT of the abdomen pelvis revealing no acute posttraumatic abnormality of the abdomen or pelvis. He also underwent a CT of the chest with contrast revealing fractures of the right third through eighth ribs with no evidence of pneumothorax. Bibasilar atelectasis and a nondisplaced fracture of the superior sternum were noted. Labwork revealed acute kidney injury which resolved the following day after IVF were administered. He was not monitored on telemetry however, EKGs and troponins were ordered and negative. His chest pain was improved with lidocaine and naproxen as well as Tylenol. Thoracic surgery was consulted and felt he was stable for discharge. At time of discharge he was hemodynamically stable and afebrile and tolerating p.o. He was mentating and ambulating at baseline and was sent home in stable condition with close primary care follow-up recommended. Total Time Total Time Spent Total Time Spent (In Minutes): 60 Total Time Includes: Examination of the Patient, Discharge Planning, Medication Reconciliation and Communication With Other Providers Discharge Plan Discharge Items Patient Disposition: Home - Self-Care Reason For Visit: 4 BROKEN RIBS Discharge Diagnosis: blunt chest trauma with sternal fracture and multiple nondisplaced rib fractures LYUDMILA-resolved Condition on Discharge: Good Activity: Resume your previous activity Non-emergency contact: Primary Care Provider Call non-emergency contact if: you have any medication questions, your symptoms worsen, your pain is not controlled, your pain is worsening, your pain is unusual for you, your pain is concerning for you and you have a fever Follow-up/Referrals: Mayra Ybarra PA-C [Primary Care Provider] - Diet: Regular Addtl Attending Provider Instructions: Please take all medications as instructed. For pain control, feel free to take up to 3000mg of Tylenol every day. You may also use the Naproxen, lidocaine patches and the oxycodone as needed for pain. Remember to continue to take deep breaths frequently and move around as much as you are able to keep your lungs well-ventilated. It is recommended that you follow-up with your primary care physician within one week of discharge to ensure you are still doing well and to provide refills of any medications as needed. It was a pleasure taking care of you! Please call if you have any questions or problems. You can reach a [facility] hospitalist on duty at [facility] 24 hours a day by calling [phone]. Take care of yourself. Ashly Goldstein, [facility] Pending Studies at Discharge: No Stand-Alone Forms: My [facility], Smoking Cessation Medications and DC Order Prescriptions: New naproxen 500 mg tablet 500 mg PO BID PRN (Reason: pain) Qty: 30 RF: 0 oxycodone 5 mg Tablet 5 mg PO Q6H PRN (Reason: severe pain) Qty: 20 RF: 0 lidocaine 5 % Adhesive Patch,Medicated 2 patch transdermal Q24H Qty: 30 RF: 1 Continued amantadine HCl 100 mg capsule 100 mg PO TID 14 Days Qty: 42 RF: 0 carbidopa-levodopa 25-100 mg tablet See Rx Instructions .ROUTE .COMPLEX RF: 0 atorvastatin 40 mg tablet 40 mg PO QAM RF: 0 duloxetine 30 mg capsule,delayed release(DR/EC) 30 mg PO DAILY RF: 0 famotidine 20 mg tablet 20 mg PO DAILY RF: 0 lisinopril 5 mg tablet 5 mg PO DAILY RF: 0 pantoprazole [Protonix] 40 mg tablet,delayed release (DR/EC) 40 mg PO DAILY RF: 0 lxqvzwvad-srqhnnaa-gstdjgxukm 25-100-200 mg tablet 1 tab PO QID Qty: 360 RF: 3 aspirin 81 mg Tablet,Delayed Release (Dr/Ec) 81 mg PO DAILY RF: 0 Discharge Orders: Discharge Order (Routine); Ordered 02/19/19 Ordered By: Ashly Goldstein Admission Data Admit Date/Time: 02/17/19 19:14 Attending Provider: Ashly Goldstein Admit Provider: Geovany Altamirano Primary Care Provider: Mayra Ybarra Other Providers: Guevara Ho ; Guevara Guerrero Other Interventions: Discharge Summary Assessment (RN) Last Done: 02/19/19 11:37 DC Date/Time DO NOT enter until pt leaves facility: 02/19/19 11:57
== END 2019-02-19 11:57 | disposition home or self-care (01) | DRG 184 ==
LOC: ED 19:46 → 3N 19:46 → SUATTDRO 22:17 → 3N 23:00